=== PATIENT | male | born 1970 | race Caucasian/White ===

== ENCOUNTER 2021-05-09 07:32 | Emergency (ER) | payer OTHER ==
[~2021-05-09] VITALS: Ht 157.5 cm; Wt 82.0 kg
[2021-05-09] MEDS ORDERED: ONDANSETRON HCL 4MG/2ML INJ IV STA (08:17)
[2021-05-09] MEDS ORDERED: KETOROLAC 30MG/ML VIAL IV STA (08:17)
[2021-05-09] MEDS ORDERED: MORPHINE SULFATE 4 MG/ML CPJ (NOT FOR IM USE) IV STA (08:17)
[2021-05-09] MEDS ORDERED: SODIUM CHLORIDE 0.9% 1,000 ML IV ONE (08:30)
[2021-05-09 08:50] LABS: BASOPHILS % 0.7 % (0.0-2.0); EOSINOPHILS % 1.2 % (0.0-5.0); HEMATOCRIT. 48.4 % (42.0-52.0); HEMOGLOBIN. 16.6 g/dL (14.0-18.0); LYMPHOCYTES % 11.2 % (20.0-50.0); MEAN CORPUSCULAR HEMOGLOBIN 30.1 pg (28.0-32.0); MEAN CORPUSCULAR VOLUME 87.6 fL (80.0-94.0); MEAN PLATELET VOLUME 9.8 fl (7.4-10.4); MONOCYTES % 5.5 % (2.0-8.0); NEUTROPHILS % 81.4 % (40.0-76.0); PLATELET 222 x1000/uL (130-400); RED BLOOD CELL COUNT 5.53 mill/uL (4.7-6.1); RED CELL DISTRIBUTION WIDTH 14.1 % (11.6-14.6)
[2021-05-09 08:56] LABS: CHLORIDE 106 mEq/L (98-107)
[2021-05-09 10:37] LABS: CLARITY URINE CLEAR (CLEAR); COLOR URINE YELLOW (YELLOW); KETONES URINE NEGATIVE (NEGATIVE); LEUKOCYTE ESTERASE URINE NEGATIVE (NEGATIVE); NITRITE URINE NEGATIVE (NEGATIVE); OCCULT BLOOD URINE 1+ (NEGATIVE); PH URINE 7.5 (4.5-8.0); PROTEIN URINE NEGATIVE (NEGATIVE); SPECIFIC GRAVITY URINE 1.012 (1.005-1.030); UROBILINOGEN URINE 0.2 E.U./dL (0.2-1.0)
[2021-05-09] MEDS ORDERED: HYDR-4346 MT (10:51)
[2021-05-09] MEDS ORDERED: IBUP-2028 MT (10:51)
[2021-05-09] MEDS ORDERED: TAMS-11 MT (10:51)
[2021-05-09 11:00] VITALS: BP 132/74
== END 2021-05-09 11:19 | disposition home or self-care (01) ==
LOC: ER 07:59
DX: N23 Unspecified renal colic (principal); N13.30 Unspecified hydronephrosis; R03.0 Elevated blood-pressure reading, without diagnosis of hypertension
CPT/HCPCS: 36415; 74176; 80053; 81003; 83690; 85025; 93005; 96374; 96375; 99285; J1885; J2270; J2405; J7030